=== PATIENT | male | born 1955 | race Caucasian/White ===

== ENCOUNTER 2024-08-18 12:14 | Outpatient (CLI) | payer MEDICARE, BC | END 2024-08-18 23:59 | disposition home or self-care (01) | LOC: MRI02 12:14 | PROVIDERS: ATTEND Nurse Practitioner | DX: M51.16 Intervertebral disc disorders with radiculopathy, lumbar region (principal); M47.27 Other spondylosis with radiculopathy, lumbosacral region; M48.07 Spinal stenosis, lumbosacral region; M54.59 Other low back pain | CPT/HCPCS: 72148 ==